=== PATIENT | female | born 1945 | race Caucasian/White ===

== ENCOUNTER → 2017-02-05 | Outpatient (CLI) | payer MEDICARE, BC ==
[2015-05-14 10:49] VITALS: BP 131/61
[~2017-02-05] MED LIST: ACLI400A2 IH; ALBU2.5V14 NEB; ALBU8.5H8 IH; ALPR0.5T PO; ALPR1TAB2 PO; AMIO100T PO; AMLO5TAB2 PO; BENZ100C PO; CYCL-331 PO; ESOM40CA PO; ESOM40CA25 PO; GABA-586 PO; HYDR-2762 PO; HYDR200T PO; IPRA3AMP IH; LEVO5TAB29 PO; LISI-334 PO; LISI1TAB5 PO; METF500T4 PO; ONDA4TAB10 PO; PHEN-318 PO; RIVA15TA PO; SERT50TA8 PO; SUCR1TAB PO; TAMS0.4C97 PO; ZOLP10TA PO
--- NOTE | 2017-02-05 12:49 | RAD ---
Complete abdominal ultrasound History: Evaluate for abdominal hernia. K45.8. Comparison: None. Procedure: Transabdominal ultrasound images are obtained. Findings: Visualized pancreas is unremarkable. Liver is diffusely increased in echogenicity. No focal hepatic masses are identified. The right hepatic lobe measures 21.8 cm in length. Gallbladder is absent. Common bile duct measures borderline dilated at 7 mm in diameter, favored to represent reservoir effect from patient's cholecystectomy. Spleen is unremarkable. Splenic length is 12.9 cm. Right kidney is normal in size and configuration without hydronephrosis. Left kidney is normal in size and configuration without hydronephrosis. Visualized portions of the aorta and IVC have normal caliber. The anterior abdominal wall is also imaged. There appears to be a small defect of the epigastric ventral wall which could measure up to about 2 cm. Impression: 1. Probable small epigastric ventral hernia. The hernia defect could measure up to 2 cm. 2. Echogenic, enlarged liver, most likely representing fatty liver disease. Occasionally, cirrhosis or hepatitis could give a similar appearance. 3. Status post cholecystectomy.
== END | disposition home or self-care (01) ==
LOC: US 08:55
PROVIDERS: ATTEND Family Medicine
DX: K45.8 Other specified abdominal hernia without obstruction or gangrene (principal); Z90.49 Acquired absence of other specified parts of digestive tract
CPT/HCPCS: 76700

== ENCOUNTER → 2017-11-03 | Outpatient (CLI) | payer MEDICARE, BC ==
[2015-05-14 10:49] VITALS: BP 131/61
[~2017-11-03] MED LIST changes: +CONTRAST GIVEN MC PRN; -HYDR200T PO; +HYDR200T71 PO; +IOHEXOL 240 MG/ML 50ML VIAL. ONE; +IOHEXOL 240 MG/ML 50ML VIAL. PO ONE; +IOHEXOL 300 MG/ML 75 ML VIAL. IV ONE
[2017-11-03 08:54] LABS: CREATININE 0.8 mg/dL (0.6-1.0); GFR 70.7
--- NOTE | 2017-11-03 11:11 | RAD ---
CT abdomen and pelvis with oral and intravenous contrast 11/03/2017 Clinical indication: Bloating, periumbilical pain. Comparison: CT abdomen and pelvis 11/10/2012, 03/28/2011. Technique: Multiple CT images of the abdomen and pelvis were obtained following the intravenous administration of 75 mL Omnipaque 300. Findings: Heart size is normal without pericardial effusion. There is a noncalcified nodule in the right lung base measuring 0.6 cm, stable since 2010 and consider benign. There are few scattered calcified granulomas in the visualized left lung base. Diffuse hepatic steatosis. There is a hypodensity at the junction of hepatic segments 5 and 4B series 2/image 27 and is too small to definitively characterize, though stability since 2010 suggests benign etiology. Prior cholecystectomy. There is a stable 1.4 cm calcification in or adjacent to hepatic segment 2, likely dystrophic. No intra or extrahepatic bile or ductal dilatation. Spleen, adrenal glands, pancreas and kidneys are unremarkable port from small right renal cyst measuring 1.9 cm. No hydronephrosis. Abdominal aorta is normal in caliber with moderate aortoiliac calcite atheromatous disease. No retroperitoneal or mesenteric lymphadenopathy. Small and large bowel loops are normal in caliber without obstruction. Moderate sigmoid diverticulosis with focal stranding adjacent to the proximal sigmoid diverticulum series 2/image 54. No roberta pneumoperitoneum. No pericolonic loculated gas fluid collection to suggest abscess. No abdominal free fluid. Urinary bladder unremarkable. Prior hysterectomy with the vaginal cuff unremarkable. No pelvic free fluid. No iliac or inguinal lymphadenopathy. There are no destructive osseous lesions. There is stable small densely sclerotic lesions in bony pelvis, consistent with benign enostosis. Impression: 1. Findings consistent with acute sigmoid diverticulitis without roberta pneumoperitoneum or pericolonic abscess. 2. No bowel obstruction. These results were discussed with nurse practitioner Yoli Coronel by telephone at 11:10 AM 11/03/[address] Gregory Balderrama.
== END | disposition home or self-care (01) ==
LOC: CT 07:53
PROVIDERS: ATTEND Nurse Practitioner Family
DX: K57.32 Diverticulitis of large intestine without perforation or abscess without bleeding (principal); K76.0 Fatty (change of) liver, not elsewhere classified; I70.0 Atherosclerosis of aorta; N28.1 Cyst of kidney, acquired; J84.10 Pulmonary fibrosis, unspecified; M89.9 Disorder of bone, unspecified; Z90.49 Acquired absence of other specified parts of digestive tract
CPT/HCPCS: 36415; 74177; 82565; 84520; Q9966; Q9967

== ENCOUNTER → 2018-06-24 | Outpatient (CLI) | payer MEDICARE, BC ==
[2015-05-14 10:49] VITALS: BP 131/61
[~2018-06-24] MED LIST changes: -AMLO5TAB2 PO; +AMLO5TAB7 PO; -CONTRAST GIVEN MC PRN; -IOHEXOL 240 MG/ML 50ML VIAL. ONE; -IOHEXOL 240 MG/ML 50ML VIAL. PO ONE; -IOHEXOL 300 MG/ML 75 ML VIAL. IV ONE; -IPRA3AMP IH; +IPRA3AMP29 IH; +METF500T16 PO; -METF500T4 PO
--- NOTE | 2018-06-24 15:20 | RAD ---
Radionuclide bone scan, 06/24/2018: HISTORY: Shoulder pain, recent fall Whole-body imaging was performed following IV injection of 26 mCi of technetium 99m MDP. No previous bone scan is available for comparison purposes. The following findings are delineated: 1. There is mildly increased activity at both AC joints, glenohumeral articulations and both sternoclavicular joints in a fairly symmetric pattern. The findings suggest arthritis. No focal avid uptake is seen to suggest a recent fracture. 2. There is increased activity at both knees, left greater than right, and at both midfoot levels, also compatible with arthritis. 3. Activity of the radionuclide about the skeleton and major joints is otherwise unremarkable. 4. Normal activity is present in both kidneys and the bladder. IMPRESSION: 1. Scattered arthritic changes as described above. 2. Otherwise unremarkable radionuclide bone scan. Electronically signed by: Marvin Connolly MD (06/24/2018 3:17 PM) [facility]
== END | disposition home or self-care (01) ==
LOC: NM 08:48
PROVIDERS: ATTEND Orthopaedic Surgery
DX: M19.011 Primary osteoarthritis, right shoulder (principal)
CPT/HCPCS: 78306; 96374; A9503

== ENCOUNTER → 2020-04-13 | Outpatient (CLI) | payer MEDICARE, BC ==
[2015-05-14 10:49] VITALS: BP 131/61
[~2020-04-13] MED LIST changes: -ACLI400A2 IH; +ACLI400A3 IH; +ALBU2.5V8 IH; -ALBU8.5H8 IH; +AMLO5TAB10 PO; -AMLO5TAB7 PO; -HYDR-2762 PO; +HYDR-2765 PO; +LISI1TAB37 PO; -LISI1TAB5 PO
--- NOTE | 2020-04-13 16:22 | RAD ---
LEFT LEG VENOUS DOPPLER STUDY: Clinical indications: Left leg swelling and pain. Findings: Duplex sonography (including owens scale evaluation and color flow and waveform spectral analysis) of the proximal aspect of the greater saphenous vein and the proximal aspect of the profunda femoral vein and the entire length of the common femoral and superficial femoral and popliteal veins and the tibioperoneal trunk and the proximal aspect of the posterior tibial and peroneal veins of the left leg was performed. Normal compressibility, augmentation of color Doppler flow after calf compression, and respiratory variation of Doppler flow is seen. Thus, there are no sonographic findings of deep venous thrombosis within these veins. Impression: There are no sonographic findings of deep venous thrombosis within the veins discussed above of the left lower extremity. Electronically signed by: Carlos Cummins MD (04/13/2020 4:19 PM) [id number]
== END | disposition home or self-care (01) ==
LOC: US 15:36
PROVIDERS: ATTEND Family Medicine
DX: I80.222 Phlebitis and thrombophlebitis of left popliteal vein (principal); M79.605 Pain in left leg
CPT/HCPCS: 93971

== ENCOUNTER 2020-05-12 11:20 | Inpatient (IN) | payer MEDICARE, BC ==
[~2020-05-12] VITALS: Ht 165.1 cm; Wt 85.2 kg
--- NOTE | 2020-05-12 11:42 | EKG ---
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
--- NOTE | 2020-05-12 11:54 | PHYS DOC ---
Past History Past Medical History: Hypertension Past Surgical History: No Surgical History Smoking: Non-smoker Alcohol Use: Occasionally Drug Use: None General Adult EDM: Chief Complaint: CHEST PAIN HPI: HPI: 74-year-old female past medical history significant for hypertension, hyperlipidemia, Sjogren's, former tobacco dependence, diabetes on metformin, atrial fibrillation on Eliquis with history of RLE DVT and PE, presents to the ED sent in by PMD, Dr. Gregory, with complaints of chest palpitations, stating she feels as if she needs to clear her throat. Concern for pvcs on ekg/ectopy. Does report sternal, sharp chest pain that radiated to her left breast that lasted for a few minutes last night, but states she has had this pain for over 30 years. States she recently lost her to lung cancer and her brother took to covid complications (he was 85 yoa). States she has been wearing a mask and was not around her brother when he was symptomatic. No history of stroke or ACS. EMR was reviewed and patient had a negative DVT study of her left lower extremity on April 13. Review of Systems: Review of Systems: Constitutional: Denies fever or chills Eyes: Denies change in visual acuity HENT: Denies nasal congestion or sore throat Respiratory: Denies cough or shortness of breath Cardiovascular: Denies chest pain or edema GI: Denies abdominal pain, nausea, vomiting, bloody stools or diarrhea : Denies dysuria Musculoskeletal: Denies back pain or joint pain Integument: Denies rash Neurologic: Denies headache, focal weakness or sensory changes Endocrine: Denies polyuria or polydipsia Lymphatic: Denies swollen glands Psychiatric: Denies depression or anxiety Heart Score: Risk Factors: Risk Factors: DM, Current or recent (<one month) smoker, HTN, HLP, family history of CAD, obesity. Risk Scores: Score 0 - 3: 2.5% MACE over next 6 weeks - Discharge Home Score 4 - 6: 20.3% MACE over next 6 weeks - Admit for Clinical Observation Score 7 - 10: 72.7% MACE over next 6 weeks - Early Invasive Strategies Allergies: Allergies: Allergies Coded Allergies Type Severity Reaction Last Updated Verified morphine Allergy Intermediate 03/04/14 Yes sulfamethoxazole Allergy Intermediate 03/04/14 Yes trimethoprim Allergy Intermediate 03/04/14 Yes procaine Allergy Mild 03/04/14 Yes azithromycin Allergy Unknown Nausea 07/25/15 Yes celecoxib Allergy Unknown STOMACH UPSET 07/25/15 Yes meperidine Allergy Unknown 07/25/15 Yes nalbuphine Allergy Unknown 07/25/15 Yes nitrofurantoin Allergy Unknown STOMACH UPSET 07/25/15 Yes Physical Exam: PE: Constitutional: Well developed, well nourished, no acute distress, non-toxic appearance. [] HENT: Normocephalic, atraumatic, bilateral external ears normal, oropharynx moist, no oral exudates, nose normal. [] Eyes: EOMI, conjunctiva normal, no discharge. [] Neck: Normal range of motion, no tenderness, supple, no stridor. [] Cardiovascular: irregular rhythm, no murmur [] Lungs & Thorax: Bilateral breath sounds clear to auscultation [] Abdomen: Bowel sounds normal, soft, no tenderness, no masses, no pulsatile masses. [] Skin: Warm, dry, no erythema, no rash. [] Back: No tenderness, no CVA tenderness. [] Extremities: No tenderness, no cyanosis, no clubbing, ROM intact, +1/4 edema- equal bl Neurologic: Alert and oriented X 3, normal motor function, normal sensory function, no focal deficits noted. [] Psychologic: Affect normal, judgement normal, mood normal. [] EKG: EKG: Irregular rhythm 82 bpm, left axis deviation, normal intervals, no T wave inversions, no ST elevations or ST depressions, afib EKG from clinic noted with 2 PVCs, in afib at 77 bpm Radiology/Procedures: Radiology/Procedures: []IMAGING REPORT Signed PATIENT: SHAWN BULLOCK ACCOUNT: [id number] : 1945 LOCATION: ER AGE: 74 SEX: F EXAM STATUS: REG ER ORD. PHYSICIAN: SHAWN WESTON DO REASON: pvcs PROCEDURE: PORTABLE CHEST 1V PORTABLE CHEST 1V History: Reason: pvcs / Spl. Instructions: / History: Comparison: March 13, 2016 Findings: Hyperinflation. Bibasilar interstitial opacities, unchanged. No consolidation. No pleural effusion. No pneumothorax. Normal heart size. Impression: 1. Hyperinflation with stable bibasilar interstitial thickening, likely related to chronic interstitial changes. Electronically signed by: Kvng Ng DO (05/12/2020 12:08 PM) [facility] DICTATED AND SIGNED BY: KVNG NG DO DATE: 05/12/20 1205 CC: CRISTINA GORDILLO MD; SHAWN WESTON DO ~ Course & Med Decision Making: Course & Med Decision Making Pertinent Labs and Imaging studies reviewed. (See chart for details) CXR concerning for chronic interstitial changes (compared to 2016 cxr). Covid test pending. Nonspecific elevation of LFTs, decreased from 2014. Unremarkable EKG showing A. fib with rate controlled. Will admit for cardiac monitoring and cardiology consultation. Dr. Quintero accepts admission. Patient stable at time of admission and agrees with this plan. I have spoken with the patient and/or caregivers. I have explained the patient's condition, diagnosis and treatment plan based on the information available to me at this time. I have answered the patient's and/or caregivers questions and answered any concerns. The patient and/or caregivers have as good an understanding of the patient's diagnosis, condition and treatment plan as can be expected at this point. The patient has been stabilized within the capability of the emergency department. The patient will be transported for further care and management or will be moved to an observation or inpatient service. I have communicated with the staff or medical practitioner taking over this patient's care. COVID-19 CRITERIA: The patient was evaluated during the global COVID-19 pandemic, and that diagnosis was suspected/considered upon their initial presentation. Their evaluation, treatment and testing was consistent with current guidelines for patients who present with complaints or symptoms that may be related to COVID-19. Dragon Disclaimer: Dragon Disclaimer: This electronic medical record was generated, in whole or in part, using a voice recognition dictation system. Departure Departure: Impression: Primary Impression: Chest pain Additional Impressions: Heart palpitations Atrial fibrillation PVCs (premature ventricular contractions) Elevated liver function tests Disposition: ADMITTED INPATIENT Admitting Physician: Cristina Gordillo Condition: STABLE Referrals: CRISTINA GORDILLO MD (PCP) Justification of Admission: Justification of Admission: Justification of Admission Dx: Yes Angina: [facility] SHAWN WESTON DO May 12, 2020 11:54
[2020-05-12 11:58] LABS: BASO % 0 % (0-3); EOS # 0.1 x10^3/uL (0.0-0.7); EOS % 2 % (0-3); HEMATOCRIT 36.9 % (36.0-47.0); HEMOGLOBIN 12.3 g/dL (12.0-15.5); LYMPH # 0.9 x10^3/uL (1.0-4.8); LYMPH % 15 % (24-48); MEAN CORPUSCULAR HEMOGLOBIN 31 pg (25-35); MEAN CORPUSCULAR HGB CONC 33 g/dL (31-37); MEAN CORPUSCULAR VOLUME 93 fL (79-100); MONO # 0.4 x10^3/uL (0.0-1.1); MONO % 6 % (0-9); NEUT # 4.7 x10^3uL (1.8-7.7); NEUT % 76 % (31-73); PLATELET COUNT 228 x10^3/uL (140-400); RED BLOOD COUNT 3.96 x10^6/uL (3.50-5.40); WHITE BLOOD COUNT 6.1 x10^3/uL (4.0-11.0)
[2020-05-12 11:59] LABS: CALCIUM 9.2 mg/dL (8.5-10.1); CREATININE 0.8 mg/dL (0.6-1.0); GFR 70.1; POTASSIUM 4.5 mmol/L (3.5-5.1)
--- NOTE | 2020-05-12 12:10 | RAD ---
PORTABLE CHEST 1V History: Reason: pvcs / Spl. Instructions: / History: Comparison: March 13, 2016 Findings: Hyperinflation. Bibasilar interstitial opacities, unchanged. No consolidation. No pleural effusion. No pneumothorax. Normal heart size. Impression: 1. Hyperinflation with stable bibasilar interstitial thickening, likely related to chronic interstitial changes. Electronically signed by: Kvng Ng DO (05/12/2020 12:08 PM) [facility]
[2020-05-12 12:11] LABS: ALBUMIN 3.5 g/dL (3.4-5.0); ALBUMIN/GLOBULIN RATIO 0.8 (1.0-1.7); MAGNESIUM 1.9 mg/dL (1.8-2.4); TOTAL BILIRUBIN 0.4 mg/dL (0.2-1.0); TOTAL PROTEIN 8.1 g/dL (6.4-8.2)
[2020-05-12 13:49] VITALS: BP 146/73
[2020-05-12] MEDS ORDERED: HYDROcodone/APAP 7.5/325MG 1 TAB TABLET PO PRN (14:15)
[2020-05-12] MEDS ORDERED: PHENAZOPYRIDINE 200 MG TABLET. PO PRN (14:15)
[2020-05-12] MEDS ORDERED: IPRATRPIUM/ALBUTEROL 0.5/2.5MG 3 ML NEBU. IH PRN (14:15)
[2020-05-12] MEDS ORDERED: ONDANSETRON ODT 4 MG TAB.RAPDIS PO PRN (14:15)
[2020-05-12] MEDS ORDERED: ALBUTEROL SULFATE 2.5 MG/3 ML NEBU. IH PRN (14:15)
[2020-05-12 15:52] VITALS: BP 143/76
[2020-05-12] MEDS ORDERED: APIX5TAB3 PO (16:01)
[2020-05-12] MEDS ORDERED: BETHANECHOL PO (16:01)
[2020-05-12] MEDS ORDERED: ALPR0.5T6 PO (16:01)
[2020-05-12] MEDS ORDERED: ESOM40CA47 PO (16:01)
[2020-05-12] MEDS ORDERED: ESCI10TA2 PO (16:01)
[2020-05-12] MEDS ORDERED: GABA600T7 PO (16:01)
[2020-05-12] MEDS ORDERED: METF-658 PO (16:07)
[2020-05-12] MEDS ORDERED: LISI1TAB37 PO (16:07)
[2020-05-12] MEDS ORDERED: AMLO5TAB10 PO (16:07)
[2020-05-12] MEDS ORDERED: ALPRAZolam 0.5 MG TABLET PO PRN (16:30)
[2020-05-12] MEDS ORDERED: ZOLPIDEM 5 MG TABLET. PO PRN (16:30)
[2020-05-12] MEDS ORDERED: SUCRALFATE 1 GM TABLET. PO SCH (17:00)
[2020-05-12] MEDS: ALPRAZolam 0.5 MG TABLET PO PRN ×2 (17:08→20:19)
[2020-05-12] MEDS ORDERED: DEXTROSE 50% 25 GM / 50ML DISP.SYRIN. IV PRN (17:15)
[2020-05-12] MEDS ORDERED: ACETAMINOPHEN 325 MG TABLET PO ONE (17:27)
[2020-05-12] MEDS: ACETAMINOPHEN 500 MG TABLET PO PRN (17:32)
[2020-05-12 20:00] VITALS: BP 135/69
[2020-05-12] MEDS: BENZONATATE 100 MG CAPSULE. PO SCH (20:18)
[2020-05-12] MEDS: GABAPENTIN 300 MG CAPSULE. PO SCH (20:18)
[2020-05-12] MEDS: HYDROcodone/APAP 7.5/325MG 1 TAB TABLET PO PRN (20:18)
[2020-05-12] MEDS: CYCLOBENZAPRINE 10 MG TABLET. PO SCH (20:18)
[2020-05-12] MEDS ORDERED: HYDROXYCHLOROQUINE 200 MG TABLET PO SCH (21:00)
[2020-05-12 22:39] VITALS: BP 127/67
--- NOTE | 2020-05-12 22:55 | NUR ---
Pt admitted to the floor prior to this nurse. Pt is resting comfortably, verbalizes understanding of POC. Call light at bedside. Will continue to monitor.
[2020-05-13 05:17] VITALS: BP 149/69
--- NOTE | 2020-05-13 05:37 | NUR ---
During morning vital signs pt got up to the use the rest room and when she got back pt's sats were 88% on room air. Pt got back into bed, and sats went up to 94%. Call light at bedside. Will continue to monitor.
[2020-05-13] MEDS ORDERED: APIX5TAB3 PO (05:40)
[2020-05-13] MEDS: PANTOPRAZOLE 40 MG TABLET. PO SCH (07:17)
[2020-05-13] MEDS ORDERED: ESOMEPRAZOLE STRONTIUM PO SCH (07:30)
[2020-05-13] MEDS: INSULIN LISPRO 300 UNITS/3 ML VIAL. SQ SCH ×3 (07:36→16:44)
[2020-05-13] MEDS: SERTRALINE 50 MG TABLET. PO SCH (08:51)
[2020-05-13] MEDS: hydroCHLOROthiazide 12.5 MG CAPSULE PO SCH (08:51)
[2020-05-13] MEDS: TAMSULOSIN 0.4 MG CAP.ER.24H. PO SCH (08:51)
[2020-05-13] MEDS: BENZONATATE 100 MG CAPSULE. PO SCH ×3 (08:51→21:49)
[2020-05-13] MEDS: GABAPENTIN 300 MG CAPSULE. PO SCH ×3 (08:51→21:49)
[2020-05-13] MEDS: CITALOPRAM 20 MG TABLET. PO SCH (08:52)
[2020-05-13] MEDS: amLODIPine BESYLATE 5 MG TABLET PO SCH (08:52)
[2020-05-13] MEDS: LISINOPRIL 20 MG TABLET PO SCH (08:52)
[2020-05-13] MEDS: APIXABAN 5 MG TABLET. PO SCH ×2 (08:53→21:49)
[2020-05-13] MEDS: metFORMIN 500 MG TABLET PO SCH (08:55)
[2020-05-13] MEDS ORDERED: RIVAROXABAN 15 MG TABLET. PO SCH (09:00)
[2020-05-13] MEDS ORDERED: HYDROXYCHLOROQUINE 200 MG TABLET PO SCH (09:00)
[2020-05-13 11:04] VITALS: BP 153/79
[2020-05-13 11:05] VITALS: BP 134/63
[2020-05-13] MEDS ORDERED: amLODIPine BESYLATE 5 MG TABLET PO SCH (12:00)
[2020-05-13] MEDS ORDERED: ALPRAZolam 0.5 MG TABLET PO PRN (12:00)
[2020-05-13] MEDS ORDERED: metFORMIN XR 500 MG TAB.ER.24H PO SCH (12:00)
[2020-05-13 12:21] LABS: ALBUMIN 3.1 g/dL (3.4-5.0); DIRECT BILIRUBIN 0.1 mg/dL (0.0-0.2); TOTAL BILIRUBIN 0.3 mg/dL (0.2-1.0); TOTAL PROTEIN 7.4 g/dL (6.4-8.2)
--- NOTE | 2020-05-13 12:56 | PN ---
DATE: SUBJECTIVE: A 74-year-old female in with chest pain, palpitations, weakness, lightheadedness and trouble with her gait. The patient says she is feeling a little better this morning, but still very wobbly. OBJECTIVE: VITAL SIGNS: Blood pressure 134/____, respiratory rate 20, pulse 84, afebrile. HEENT: The patient's head was atraumatic, normocephalic. Eyes: PERRLA without jaundice. Mouth and throat were normal. NECK: Supple, without JVD, carotid bruits. Denies thyromegaly. LUNGS: Diminished, but clear. CARDIOVASCULAR: Regular sinus rhythm. ABDOMEN: Soft, nontender, no rebound or guarding. Positive bowel sounds. EXTREMITIES: The patient had a wide-based gait ____. No clubbing, cyanosis or edema. She has marked numbness and tingling in her feet. IMPRESSION: Chest pain, unknown etiology, lightheadedness, generalized weakness, type 2 diabetes, diabetic neuropathy, gait disturbance, history of blood clots, essential hypertension, Sjogren's disease. PLAN: Continue to monitor the patient accordingly, make further evaluation on her as indicated. CRISTINA GORDILLO MD DR: SHYLA/kai JOB#: [id number] / [id number]
[2020-05-13 15:00] VITALS: BP 104/59
--- NOTE | 2020-05-13 16:45 | RAD ---
CT HEAD WO CONTRAST History: Reason: unsteady and gait disturbance / Spl. Instructions: / History: Comparison: MRI December 18, 2016 Technique: Noncontrast CT imaging was performed of the head. Exposure: One or more of the following individualized dose reduction techniques were utilized for this examination: 1. Automated exposure control 2. Adjustment of the mA and/or kV according to patient size 3. Use of iterative reconstruction technique. Findings: No intracranial hemorrhage. No mass effect. No hydrocephalus. Anterior parafalcine extra-axial mass measures 2.1 x 1.8 cm, similar compared to prior allowing for differences in technique. There is mild mass effect on the adjacent frontal lobes. Mild foci of decreased attenuation within the hemispheric white matter, most often due to chronic microvascular ischemia, unchanged. Mild brain parenchymal volume loss. Imaged orbits are unremarkable. Imaged paranasal sinuses and mastoid air cells are clear. No acute calvarial fracture. TMJ arthropathy. Impression: 1. No acute intracranial abnormality. 2. Unchanged anterior parafalcine meningioma. Electronically signed by: Kvng Ng DO (05/13/2020 4:42 PM) [facility]
[2020-05-13 19:46] VITALS: BP 121/66
[2020-05-13] MEDS: ALPRAZolam 0.5 MG TABLET PO PRN (21:49)
[2020-05-13] MEDS: ACETAMINOPHEN 500 MG TABLET PO PRN (21:49)
[2020-05-13] MEDS: CYCLOBENZAPRINE 10 MG TABLET. PO SCH (21:49)
[2020-05-13 23:19] VITALS: BP 126/69
[2020-05-13] MEDS: HYDROcodone/APAP 7.5/325MG 1 TAB TABLET PO PRN (23:34)
[2020-05-14 02:06] LABS: HEMOGLOBIN A1C 7.1 % (4.8-5.6)
[2020-05-14 05:51] VITALS: BP 137/68
[2020-05-14] MEDS: INSULIN LISPRO 300 UNITS/3 ML VIAL. SQ SCH ×2 (07:44→12:00)
[2020-05-14] MEDS: SERTRALINE 50 MG TABLET. PO SCH ×2 (09:00→09:10)
[2020-05-14] MEDS: hydroCHLOROthiazide 12.5 MG CAPSULE PO SCH (09:09)
[2020-05-14] MEDS: metFORMIN 500 MG TABLET PO SCH (09:09)
[2020-05-14] MEDS: GABAPENTIN 300 MG CAPSULE. PO SCH (09:09)
[2020-05-14] MEDS: APIXABAN 5 MG TABLET. PO SCH (09:10)
[2020-05-14] MEDS: PANTOPRAZOLE 40 MG TABLET. PO SCH (09:10)
[2020-05-14] MEDS: CITALOPRAM 20 MG TABLET. PO SCH (09:10)
[2020-05-14] MEDS: TAMSULOSIN 0.4 MG CAP.ER.24H. PO SCH (09:12)
[2020-05-14] MEDS: amLODIPine BESYLATE 5 MG TABLET PO SCH (09:12)
[2020-05-14] MEDS: LISINOPRIL 20 MG TABLET PO SCH (09:12)
[2020-05-14] MEDS: BENZONATATE 100 MG CAPSULE. PO SCH (09:12)
[2020-05-14 11:00] VITALS: BP 145/61
--- NOTE | 2020-05-19 14:47 | DS ---
DATE OF DISCHARGE: 05/14/2020 HOSPITAL COURSE: This is a pleasant white 74-year-old female with recent loss of her , came in with chest pain, palpitations and lightheadedness, trouble with her gait, possible near syncope. The patient came in and she was placed on a rule out CT protocol. Cardiology was kind enough to review the patient and make further timely suggestions. The patient had a history of hypertension, hyperlipidemia, former tobacco dependence. She is diabetic, history of atrial fibrillation, on Eliquis; history of DVT, PE, and the like. The patient was admitted to the hospital for further evaluation of her ectopy, and make further evaluation on her. The patient's cardiac enzymes were basically unremarkable. Blood sugar in the low 100s. The patient otherwise serology negative for COVID-19. Elevated liver enzymes, nonreactive for A, B and C hepatitis. The patient's albumin moderately low. IMPRESSION: Chest pain, arrhythmias, type 2 diabetes, moderate protein malnutrition, elevated liver enzymes. PLAN: The patient will be on a heart healthy diet, decreased and follow up with her healthcare facility administrator as an outpatient. CRISTINA GORDILLO MD DR: SHYLA/kai JOB#: [id number] / [id number]
== END 2020-05-14 13:40 | disposition home or self-care (01) | DRG 303 ==
LOC: ER 11:20 → 1 SOUTH 13:20 → ER 13:40
PROVIDERS: ADMIT Family Medicine; ATTEND Family Medicine
DX: I25.10 Atherosclerotic heart disease of native coronary artery without angina pectoris (principal); E44.0 Moderate protein-calorie malnutrition; I48.91 Unspecified atrial fibrillation; E11.40 Type 2 diabetes mellitus with diabetic neuropathy, unspecified; E78.5 Hyperlipidemia, unspecified; I10 Essential (primary) hypertension; I49.3 Ventricular premature depolarization; M35.00 Sjogren syndrome, unspecified; Z79.01 Long term (current) use of anticoagulants; Z86.718 Personal history of other venous thrombosis and embolism; Z87.891 Personal history of nicotine dependence; Z79.84 Long term (current) use of oral hypoglycemic drugs; Z20.828 Contact with and (suspected) exposure to other viral communicable diseases; Z68.31 Body mass index [BMI] 31.0-31.9, adult
CPT/HCPCS: 36415; 70450; 71045; 80053; 80076; 82550; 82947; 83036; 83690; 83735; 83880; 84484; 85025; 86705; 86709; 86803; 87340; 93005; J1815; 99285-25; U0003-CS